=== PATIENT | male | born 1945 | race Caucasian/White ===

== ENCOUNTER 2016-07-22 07:18 | Day surgery (SDC) | payer MEDICARE ==
--- NOTE | ~2016-07-22 | OP ---
Record Of Operation [facility] [address] [place]. [address] NAME: ALFREDA EDWARDS : 43 STATUS : REG [facility] [place] PAT#: [id number] AGE: 71 ADM/REG DATE : 07/22/16 MR#: [id number] REPORT SERV DATE: 07/22/16 DICTATED BY: PANCHO OLIVERA DATE: 07/22/16 REPORT STATUS : Draft TRANSCRIBED BY: MODL DATE: 07/22/16 DATE OF PROCEDURE: 07/22/2016 POSTOPERATIVE DIAGNOSIS: Left hydrocele. POSTPROCEDURE DIAGNOSIS: Left hydrocele. PROCEDURE: Left hydrocelectomy. ANESTHESIA: General inhalation. SURGEON: Pancho Olivera M.D. SPECIMENS: Hydrocele sac. ESTIMATED BLOOD LOSS: 10 mL. COMPLICATIONS: None. DRAINS: 1-1/4 inch Zena drain. IMMEDIATE POSTOP: Satisfactory. DESCRIPTION OF PROCEDURE: The patient was brought into the surgery suite, given general inhalational anesthetic in the supine position. Genitalia then prepped and draped in sterile fashion. Right hemiscrotal incision was made, carried down through the scrotal wall using Bovie cautery. The hydrocele sac containing the testis and spermatic cord were then bluntly and sharply dissected free and delivered from a left hemiscrotum. Left hemiscrotum was checked for hemostasis which was complete. The hydrocele sac was then opened along its long axis. It was opened opposite the spermatic cord, vas, and vessels, so as not to disturb the structures. Approximately 200 mL of dark tim hydrocele fluid were evacuated from the hydrocele sac. The testis appeared normal, but did appear somewhat small in size. Hydrocele sac was then removed using the Bovie cautery. Hemostasis obtained again along the edges of the hydrocele sac. Redundant sac was then "bottle necked" around the posterior portion of spermatic cord, sutured loosely into place in that position using 4-0 chromic catgut. Once this had been performed, it was made certain that this closure was not too tight, so as not to compromise vascular flow to the testis. Again, the scrotum was copiously irrigated and hemostasis was complete. A cew-evndjfu-hmse [place] drain was then brought out from the left hemiscrotum through a separate dependent stab incision. It was sutured into place using a 2-0 silk suture. Testis was then placed back in the left hemiscrotum in a normal anatomic position. The wound was then closed in layers. The patient tolerated the procedure well. At this point, he was awake and sent to recovery in satisfactory condition. Record Of Operation [facility] [address] [place]. [address] NAME: ALFREDA EDWARDS : 43 STATUS : REG [facility] [place] PAT#: [id number] AGE: 71 ADM/REG DATE : 07/22/16 MR#: [id number] REPORT SERV DATE: 07/22/16 DICTATED BY: PANCHO OLIVERA DATE: 07/22/16 REPORT STATUS : Draft TRANSCRIBED BY: REJI DATE: 07/22/16 MS/REJI Pancho Olivera M.D. / [id number] CC: Hugo Jimenez M.D.
[~2016-07-22 07:18] MED LIST: AMIT10 PO; ASAB PO; CEFT5 PO; COREG3 PO; FLEX PO; GLUCPH PO; HUMULIN R1 ML SC; INSNOVR SC; INSNOVR SQ; L40 PO; LAMIS15 TOP; LIPITOR40 PO; LYRICA300 MG PO; NOR50 PO; NORCO1 TAB PO; PLAVIX PO; PRIN5 PO; ULTRAM50 PO
== END 2016-07-22 14:05 | disposition home or self-care (01) ==
LOC: SDC 07:18
PROVIDERS: Urology
PROC: 0VBG0ZZ Excision of Left Spermatic Cord, Open Approach (ICD-10-PCS; principal; 2016-07-22 08:45)
DX: N43.3 Hydrocele, unspecified (principal); I10 Essential (primary) hypertension; E78.5 Hyperlipidemia, unspecified; M06.9 Rheumatoid arthritis, unspecified; G62.9 Polyneuropathy, unspecified; I73.9 Peripheral vascular disease, unspecified; I25.10 Atherosclerotic heart disease of native coronary artery without angina pectoris; K21.9 Gastro-esophageal reflux disease without esophagitis; E11.9 Type 2 diabetes mellitus without complications; G47.33 Obstructive sleep apnea (adult) (pediatric); E78.00 Pure hypercholesterolemia, unspecified; Z86.73 Personal history of transient ischemic attack (TIA), and cerebral infarction without residual deficits; Z95.1 Presence of aortocoronary bypass graft; Z99.81 Dependence on supplemental oxygen; Z98.41 Cataract extraction status, right eye; Z98.42 Cataract extraction status, left eye; Z98.890 Other specified postprocedural states
CPT/HCPCS: 71020; 80053; 81001; 82962; 85014; 85018; 88302; 93005; J0690; J2270; J2405; J3010

== ENCOUNTER 2016-08-14 10:20 | Observation (INO) | payer MEDICARE ==
--- NOTE | ~2016-08-14 | HP ---
History And Physical [facility] [id number] [place]. [address] NAME: ALFREDA EDWARDS : 43 STATUS : ADM [facility] PAT#: [id number] AGE: 71 ADM/REG DATE : 08/14/16 MR#: [id number] REPORT SERV DATE: 08/14/16 DICTATED BY: PANCHO OLIVERA DATE: 08/14/16 REPORT STATUS : Draft TRANSCRIBED BY: MODL DATE: 08/14/16 DATE OF ADMISSION: 08/14/2016 CHIEF COMPLAINT: Swollen scrotum, for emergency scrotal exploration, incision and drainage. PERTINENT HISTORY AND PHYSICAL: This is a 71-year-old white gentleman with multiple medical problems including diabetes and coronary vascular disease who underwent an uneventful hydrocelectomy on 07/22/2016; however, he has had problems since with recurrent swelling, pain, and some spontaneous drainage of bloody fluid. He presented today after being seen earlier this week with the rapid onset of swelling and pain in the scrotum with low-grade fever. He is brought to day surgery for an EMERGENCY exploration. The emergency status of this case has been discussed with Dr. Tang in the Anesthesia Department. Review of medications on chart had been reviewed. PAST MEDICAL HISTORY: Includes reflux, insulin-dependent diabetes. SOCIAL HISTORY: Noncontributory. FAMILY HISTORY: Noncontributory. PHYSICAL EXAMINATION: GENERAL: Well-developed 71-year-old gentleman, acutely ill appearing, complaining of left scrotal pain. HEAD AND NECK: Head and neck are normal. CHEST: Well-healed postop sternotomy scar. ABDOMEN: Not distended. RESPIRATORY: Normal. LUNGS: Clear. : Genitalia normal. Uncircumcised penis. Left hemiscrotum markedly swollen with reddened skin. Recent incision intact without drainage. There are no gangrenous changes noted in the scrotal skin. The testis on the right is normal. The left testis is not palpable due to the swelling and probable reaccumulation of fluid. Rectal exam not done. IMPRESSION: Left postop hematocele/hematoma/abscess. PLAN: Emergency incision and drainage. The procedure has been explained to the patient and his and discussed with anesthesia as above. Risks of the operation and the possibility of acute loss of the testis have been explained as well. /REJI Pancho Olivera M.D. History And Physical [address] [address] NAME: ALFREDA EDWARDS : 43 STATUS : ADM [facility] PAT#: [id number] AGE: 71 ADM/REG DATE : 08/14/16 MR#: [id number] REPORT SERV DATE: 08/14/16 DICTATED BY: PANCHO OLIVERA DATE: 08/14/16 REPORT STATUS : Draft TRANSCRIBED BY: MODL DATE: 08/14/16 / [id number] CC: Hugo Jimenez M.D.
--- NOTE | ~2016-08-14 | OP ---
Record Of Operation [facility] [address] [place]. [address] NAME: ALFREDA EDWARDS : 43 STATUS : ADM Nica PAT#: [id number] AGE: 71 ADM/REG DATE : 08/14/16 MR#: [id number] REPORT SERV DATE: 08/14/16 DICTATED BY: PANCHO OLIVERA DATE: 08/14/16 REPORT STATUS : Draft TRANSCRIBED BY: MODL DATE: 08/14/16 DATE OF PROCEDURE: 08/14/2016 PREOPERATIVE DIAGNOSIS: Postop hydrocele with post left hydrocelectomy with hematocele versus scrotal abscess. POSTOPERATIVE DIAGNOSIS: Postop hydrocele with post left hydrocelectomy with hematocele versus scrotal abscess. OPERATIVE PROCEDURE: Scrotal exploration with drainage and left orchiectomy. ANESTHESIA: General inhalation. SURGEON: Dr. Olivera. SPECIMENS: Left testis. DRAINS: Two 1/2 inch Zena drain. ESTIMATED BLOOD LOSS: 10 mL. COMPLICATIONS: None. IMMEDIATE POSTOP: Satisfactory. DESCRIPTION OF PROCEDURE: The patient was brought into the surgery suite, placed in supine position. Genitalia was prepped and draped in sterile fashion. #16 [place] [place] was then passed into the bladder, balloon inflated and hooked to drainage. The scrotum was then prepped and draped in sterile fashion. The previous incision was re-entered immediately noted was a large egress of straw colored fluid. It did not appear particularly purulent nor was it foul smelling. Cultures were obtained. The wound was then opened in its entirety. There was no active bleeding going on. The testis was identified, the spermatic cord was mobilized using a combination of blunt and sharp dissection. The spermatic cord was then clamped in two separate bites and the testis excised and submitted to Pathology. Each of the spermatic cord stump (each bite) was then doubly ligated with a proximal 0 chromic free end tied and distal 0 chromic suture ligature. The spermatic cord stump was inspected for hemostasis which was complete. About 5-10 mL of 0.5% Marcaine without epinephrine were then injected into the spermatic cord. The scrotum was then checked for hemostasis which was complete. The scrotum was then very copiously irrigated with saline. At this point, two 1/2 inch [place] drains were brought out through separate dependent stab incisions in the scrotum and the wound was closed in 2 layers with 0 chromic. The patient tolerated the procedure well, at this point was awakened, and sent to Recovery in satisfactory condition. Record Of Operation [facility] [address] [place] [address] NAME: ALFREDA EDWARDS : 43 STATUS : ADM [facility] PAT#: [id number] AGE: 71 ADM/REG DATE : 08/14/16 MR#: [id number] REPORT SERV DATE: 08/14/16 DICTATED BY: PANCHO OLIVERA DATE: 08/14/16 REPORT STATUS : Draft TRANSCRIBED BY: REJI DATE: 08/14/16 MS/MODL Pancho Olivera M.D. / [id number] CC: Hugo Jimenez M.D.
[2016-08-14 12:25] LABS: ALBUMIN 3.5 G/DL (3.5-5.0); ALKALINE PHOSPHATASE 103 U/L (45-117); BUN (BLOOD UREA NITROGEN) 17 MG/DL (6-23); CALCIUM, SERUM 8.8 MG/DL (8.5-10.4); CHLORIDE, SERUM 98 MMOL/L (96-112); CO2 (CARBON DIOXIDE) 30 MMOL/L (24-34); CREATININE 1.31 MG/DL (0.70-1.30); GFR AFRICAN AMERICAN 63 ML/MIN (>=60); GFR NON AFRICAN AMERICAN 54 ML/MIN (>=60); GLOBULIN 3.6 G/DL (2.5-4.1); POTASSIUM, SERUM 3.8 MMOL/L (3.5-5.3); SGOT(AST) 16 U/L (5-40); SGPT(ALT) 21 U/L (5-65); SODIUM, SERUM 135 MMOL/L (135-148); TOTAL PROTEIN 7.1 G/DL (6.0-8.5)
[2016-08-14 12:27] LABS: GLUCOSE, SERUM 269 MG/DL (60-99)
[2016-08-14 13:45] LABS: HEMOGLOBIN 12.9 g/dL (13.6-17.8); MEAN CORPUS HGB CONC 33.2 g/dL (32.0-36.0); MEAN CORPUSCULAR HEMOGLOB 28.8 pg (26.0-34.0); MEAN CORPUSCULAR VOLUME 86.6 fL (80-100); MEAN PLATELET VOLUME 11.4 fL (9.2-13.0); PLATELET COUNT 186 10/3/uL (150-400); RBC DISTRIBUTION WIDTH 13.7 % (12.0-16.0); RED CELL COUNT 4.48 10/6/uL (4.7-6.1)
[2016-08-14 13:47] LABS: HEMATOCRIT 38.8 % (40.0-51.0); MANUAL DIFF YES %; WHITE BLOOD CELLS 14.6 10/3/uL (4.5-10.5)
[2016-08-14 14:09] LABS: LYMPHOCYTES 10 %; LYMPHOCYTES ABSOLUTE (CALC) 1.46 10/3/uL (0.67-4.30); MONOCYTES 7 %; MONOCYTES ABSOLUTE (CALC) 1.02 10/3/uL (0.21-1.20); NEUTROPHILS ABSOLUTE (CALC) 12.12 10/3/uL (2.02-8.40); PLATELET ESTIMATE ADQ (ADEQUATE); RBC MORPHOLOGY NORM (NORMAL); SEGMENTED NEUTROPHIL (0) 83 %; TOTAL NUCLEATED CELLS 100
[2016-08-14 14:52] LABS: WBC (NOT ORDERED) (RFLEX) 0 (0-5)
[2016-08-14 15:20] LABS: ASCORBIC ACID (UR NOT ORDER) NEG (NEG); BILIRUBIN, URINE NEGATIVE (NEG); KETONE, URINE NEGATIVE (NEG); LEUKOCYTE ESTERASE(NOT OR NEG (NEG)
[2016-08-15 07:10] LABS: BASOPHILS 0.1 %; BASOPHILS ABSOLUTE 0.02 10/3/uL (0.0-0.16); EOSINOPHILS 0.7 %; HEMATOCRIT 36.2 % (40.0-51.0); HEMOGLOBIN 12.1 g/dL (13.6-17.8); IMMATURE GRANULOCYTES 0.3 %; IMMATURE GRANULOCYTES ABSOLUTE 0.04 10/3/uL (0.0-0.11); LYMPHOCYTES 14.1 %; LYMPHOCYTES ABSOLUTE 2.07 10/3/uL (0.67-4.30); MEAN CORPUS HGB CONC 33.4 g/dL (32.0-36.0); MEAN CORPUSCULAR HEMOGLOB 29.4 pg (26.0-34.0); MEAN CORPUSCULAR VOLUME 87.9 fL (80-100); MEAN PLATELET VOLUME 11.5 fL (9.2-13.0); MONOCYTES 7.8 %; MONOCYTES ABSOLUTE 1.14 10/3/uL (0.21-1.20); PLATELET COUNT 158 10/3/uL (150-400); RBC DISTRIBUTION WIDTH 13.6 % (12.0-16.0); RED CELL COUNT 4.12 10/6/uL (4.7-6.1); WHITE BLOOD CELLS 14.7 10/3/uL (4.5-10.5)
[2016-08-15 07:13] LABS: MANUAL DIFF NO %
[2016-08-15 07:25] LABS: BUN (BLOOD UREA NITROGEN) 12 MG/DL (6-23); CALCIUM, SERUM 8.1 MG/DL (8.5-10.4); CHLORIDE, SERUM 100 MMOL/L (96-112); CO2 (CARBON DIOXIDE) 30 MMOL/L (24-34); CREATININE 0.84 MG/DL (0.70-1.30); GFR AFRICAN AMERICAN 101 ML/MIN (>=60); GFR NON AFRICAN AMERICAN 87 ML/MIN (>=60); GLUCOSE, SERUM 119 MG/DL (60-99); POTASSIUM, SERUM 3.8 MMOL/L (3.5-5.3); SODIUM, SERUM 138 MMOL/L (135-148)
[2016-08-15] MEDS ORDERED: BACTRIM DS1 TAB PO (15:30)
[2016-08-15] MEDS ORDERED: ZOFRAN4 PO (15:30)
[2016-08-15] MEDS ORDERED: NORCO1 TAB PO (15:30)
== END 2016-08-15 16:33 | disposition home or self-care (01) ==
LOC: SDC 10:20 → 4SO 15:25
PROVIDERS: Urology
PROC: 0VJ80ZZ Inspection of Scrotum and Tunica Vaginalis, Open Approach (ICD-10-PCS; principal; 2016-08-14 12:15)
PROC: 0VTB0ZZ Resection of Left Testis, Open Approach (ICD-10-PCS; 2016-08-14 12:15)
DX: N45.2 Orchitis (principal); I69.351 Hemiplegia and hemiparesis following cerebral infarction affecting right dominant side; I10 Essential (primary) hypertension; E11.9 Type 2 diabetes mellitus without complications; G47.33 Obstructive sleep apnea (adult) (pediatric); K21.9 Gastro-esophageal reflux disease without esophagitis; Z98.890 Other specified postprocedural states; Z99.89 Dependence on other enabling machines and devices; Z95.1 Presence of aortocoronary bypass graft; Z95.2 Presence of prosthetic heart valve; Z79.82 Long term (current) use of aspirin; Z79.4 Long term (current) use of insulin; Z79.899 Other long term (current) drug therapy
CPT/HCPCS: 80048; 80053; 81001; 82962; 85025; 87015; 87070; 87075; 87077; 87086; 87102; 87116; 87186; 87205; 88305; 96374; A9270-GY; G0378; J0330; J1170; J2175; J2250; J2405; J3010